=== PATIENT | male | born 1990 | race African-American/Black ===

== ENCOUNTER 2017-02-09 02:27 | Emergency (ER) | payer SELFPAY ==
[~2017-02-09] VITALS: Ht 157.5 cm; Wt 85.0 kg
[~2017-02-09 02:27] MED LIST: ZOFR4TAB3 SL
[2017-02-09 02:29] VITALS: BP 139/86; PULSE 89; RESP 16; TEMP 99.6; O2SAT 96
[2017-02-09] MEDS ORDERED: AMOX500T PO (04:04)
[2017-02-09] MEDS ORDERED: MAGICADU2 SWISH-SWAL (04:07)
--- NOTE | 2017-02-09 04:08 | PD ---
HPI Chief Complaint: Cold / Flu Symptoms Time Seen by Provider: 03:54 Travel History International Travel<30 days: No Contact w/Intl Traveler<30days: No Traveled to known affect area: No History of Present Illness HPI 26-year-old black male presents to emergency department with complaints of sore throat. He states that he's been sick for nearly a week. He has had some subjective fever, sore throat, slight cough and general malaise. He denies any nausea vomiting. No diarrhea. No abdominal pain or urinary symptoms. Symptoms are moderate. Worse with swallowing or coughing. No alleviating factors. PFSH Past Medical History Medical History: Denies Significant Hx Diminished Hearing: No Past Surgical History Surgical History: No Previous Surgery Social History Alcohol Use: No Tobacco Use: No Substance Use: No Allergies-Medications (Allergen,Severity, Reaction): Coded Allergies: No Known Allergies (Unverified Adverse Reaction, Unknown, 02/09/17) Reported Meds & Prescriptions Reported Meds & Active Scripts Active Amoxicillin 500 Mg Tab 500 Mg PO BID 10 Days Review of Systems Except as stated in HPI: all other systems reviewed are Neg Physical Exam Narrative GENERAL: Well-developed, well-nourished in no acute distress. Nontoxic appearing. HEAD: Normocephalic, atraumatic. EYES: Pupils equal round and reactive. Extraocular motions intact. No scleral icterus. No injection or drainage. ENT: TMs clear without erythema. The external auditory canals clear. Nose: clear . Posterior pharynx is erythematous and moist. Positive tonsillar edema no exudate. Uvula midline. Airway patent. NECK: Trachea midline.Supple, nontender, moves head freely. No central bony tenderness or spasm. Positive tonsillar and cervical adenopathy CARDIOVASCULAR: Regular rate and rhythm without murmurs, gallops, or rubs. RESPIRATORY: Clear to auscultation. Breath sounds equal bilaterally. No wheezes , rales, or rhonchi. GASTROINTESTINAL: Abdomen soft, non-tender, nondistended. No hepato-splenomegaly , or palpable masses. No guarding. EXTREMITIES: No clubbing, cyanosis, or edema. No joint tenderness, effusion, or edema noted. BACK: Nontender without deformity or crepitance. No flank tenderness. Data Data Last Documented VS Vital Signs Date Time Temp Pulse Resp B/P (MAP) Pulse Ox O2 Delivery O2 Flow Rate FiO2 02/09/17 02:29 99.6 89 16 139/86 (103) 96 Room Air Orders Orders Ed Discharge Order (02/09/17 04:02) Al-Mag Hy-Si 40-40-4 Mg/Ml Liq (Mag-Al P (02/09/17 04:15) Lidocaine 2% Viscous (Xylocaine 2% Visco (02/09/17 04:15) Amoxicillin (Trimox) (02/09/17 04:15) MDM Medical Decision Making Medical Screen Exam Complete: Yes Emergency Medical Condition: Yes Medical Record Reviewed: Yes Differential Diagnosis MDM: High Differential diagnoses: Strep throat, viral pharyngitis, mono, peritonsillar abscess, retropharyngeal abscess, Donald's angina Narrative Course Patient's given Magic mouthwash and amoxicillin 500 mg by mouth. This is acute pharyngitis Diagnosis Primary Impression: Acute pharyngitis Qualified Codes: J02.9 - Acute pharyngitis, unspecified Patient Instructions: General Instructions Departure Forms: Tests/Procedures, Work Release Special Instructions: No work 3 days. Additional Instructions: Rest. Force fluids. Saltwater gargles. Tylenol and Advil. Chloraseptic Perkins Cepastat lozenge. Amoxicillin. Magic mouthwash. Follow-up with a primary care doctor in one week. Return to the ER if any problems. Med/Other Pt SpecificInfo: Prescription(s) given Scripts Dgsirhgq-Xlnvygmfsvwlpxs-Mcytjexnf Liq (Magic Mouthwash Adult Liq) 120 Ml Susp 5 ML SWISH-SWAL ACHS for Mouth sores, #120 ML 0 Refills Each 5mL contains: Nystatin 200,000units, Diphenhydramine 4.25mg, Viscous Lidocaine 10mg, Nava syrup 0.8 mL Prov: Arash Washington 02/09/17 Amoxicillin (Amoxicillin) 500 Mg Tab 500 MG PO BID for Infection for 10 Days, #20 TAB 0 Refills Prov: Leo Velasquez MD 02/09/17 Disposition: 01 DISCHARGE HOME Condition: Stable Arash Washington Feb 09, 2017 04:08
[2017-02-09] MEDS ORDERED: ALUMINUM/MAGNESIUM/SIMETH 30 ML CUP PO ONE (04:15)
[2017-02-09] MEDS ORDERED: LIDOCAINE VISCOUS 2% SOLN 15 ML UDC SWISH-SWAL ONE (04:15)
[2017-02-09] MEDS ORDERED: AMOXICILLIN (TRIHYDRATE) 500 MG CAP PO ONE (04:15)
== END 2017-02-09 04:25 | disposition home or self-care (01) ==
LOC: NEPD 02:27
DX: J02.9 Acute pharyngitis, unspecified (principal)
CPT/HCPCS: 99284